=== PATIENT | male | born 1995 | race Caucasian/White ===

== ENCOUNTER 2024-02-16 22:16 | Emergency (ER) | payer SELFPAY ==
[~2024-02-16] VITALS: Ht 182.9 cm; Wt 90.7 kg
[2024-02-16 22:20] VITALS: BP 149/94; PULSE 89; RESP 18; TEMP 97; O2SAT 98
[2024-02-16] MEDS ORDERED: ZOFRAN ONE (22:41)
[2024-02-16] MEDS ORDERED: TORADOL ONE (22:41)
[2024-02-16] MEDS: ZOFRAN IV STA (22:45)
[2024-02-16] MEDS: TORADOL IV STA (22:46)
[2024-02-16 22:49] LABS: BASOPHIL # 0.1 10^3/uL (0.0-0.1); BASOPHIL % 0.6 % (0.2-1.2); EOSINOPHIL # 0.1 10^3/uL (0.0-0.2); EOSINOPHIL % 0.8 % (0.0-5.0); HEMATOCRIT(ML) 52.3 % (37.0-53.0); LYMPHOCYTES # 3.76 10^3/uL1 (1.0-4.8); LYMPHOCYTES % 35.4 % (24.0-44.0); MEAN CORP HGB 29.6 pg (26-34); MEAN CORP HGB CONCENTRATION 34.4 g/dL (33-36.5); MONOCYTES # 0.9 10^3/uL (0.3-0.8); MONOCYTES % 8.2 % (5.0-12.0); NEUTROPHIL # 5.8 10^3/uL (1.8-7.7); NEUTROPHILS % 54.9 % (41.0-85.0); PLATELET COUNT 284 10^3/uL (150-400); RED BLOOD CELL 6.08 10^6/uL (4.50-5.90); RED CELL DISTRIBUTION WIDTH 11.8 % (11.5-14.5); WHITE BLOOD CELL 10.6 10^3/uL (4.5-11.0)
[2024-02-16 22:50] LABS: +ADD MANUAL DIFF(NO CHRG) NO
[2024-02-16 23:12] LABS: ALBUMIN(ML) 5.1 g/dL (3.4-5.0); ALBUMIN/GLOBULIN RATIO 1.342; ANION GAP 15.8; BUN/CREATININE RATIO 11.4 (10.0-20.0); CALCIUM 9.7 mg/dL (8.4-10.5); CARBON DIOXIDE 27.9 mmol/L (20.0-32); CREATININE SERUM 1.14 mg/dL (0.59-1.40); EST GFR, NON-AA 77.6 (>/=60); POTASSIUM 3.7 mmol/L (3.6-5.2)
[2024-02-16 23:20] VITALS: BP 139/101; PULSE 61; RESP 18; TEMP 97; O2SAT 98
[2024-02-17 00:02] VITALS: BP 137/74; PULSE 67; RESP 18; TEMP 97; O2SAT 98
== END 2024-02-17 00:05 | disposition home or self-care (01) ==
LOC: ER 22:16
DX: R10.31 Right lower quadrant pain (principal); F12.90 Cannabis use, unspecified, uncomplicated
CPT/HCPCS: 99285; 74176; 96374; 96375; 80053; 85025; 36415; J2405; J1885

== ENCOUNTER 2024-08-10 17:31 | Emergency (ER) | payer SELFPAY ==
[~2024-08-10] VITALS: Ht 182.9 cm; Wt 90.7 kg
[2024-08-10 17:34] VITALS: BP 155/106; PULSE 62; RESP 18; TEMP 98.9; O2SAT 98
[2024-08-10 17:52] VITALS: BP_SYST 155; RESP 18
[2024-08-10] MEDS ORDERED: HYDR50TA PO (17:53)
[2024-08-10] MEDS ORDERED: KETO10TA PO (17:53)
[2024-08-10] MEDS ORDERED: ATARAX ONE (18:13)
[2024-08-10] MEDS ORDERED: TORADOL ONE (18:14)
[2024-08-10] MEDS: TORADOL IM STA (18:17)
[2024-08-10] MEDS: ATARAX PO STA (18:17)
== END 2024-08-10 18:20 | disposition home or self-care (01) ==
LOC: ER 17:31
DX: S40.222A Blister (nonthermal) of left shoulder, initial encounter (principal); S40.221A Blister (nonthermal) of right shoulder, initial encounter; Z90.49 Acquired absence of other specified parts of digestive tract; X58.XXXA Exposure to other specified factors, initial encounter; Y93.89 Activity, other specified; Y92.89 Other specified places as the place of occurrence of the external cause; Y99.8 Other external cause status
CPT/HCPCS: 99283; 96372; J1885; A6222